=== PATIENT | female | born 1995 | race Caucasian/White ===

== ENCOUNTER → 2023-10-22 17:56 | Outpatient (BNVA) | payer SELFPAY | PROVIDERS: Visit Provider Nurse Practitioner | DX: R50.9 Fever, unspecified (principal); N64.52 Nipple discharge; N64.59 Other signs and symptoms in breast | CPT/HCPCS: 84146; 85025 ==

== ENCOUNTER → 2023-10-25 14:34 | Outpatient (BNVA) | payer SELFPAY | PROVIDERS: PCP Nurse Practitioner Family; Visit Provider Nurse Practitioner Family | DX: R63.4 Abnormal weight loss (principal); K90.0 Celiac disease | CPT/HCPCS: 84443; 84480 ==

== ENCOUNTER → 2023-11-05 14:27 | Outpatient (BNVA) | payer SELFPAY | PROVIDERS: PCP Nurse Practitioner Family; Visit Provider Nurse Practitioner | DX: N64.52 Nipple discharge (principal) | CPT/HCPCS: 87070 ==

== ENCOUNTER 2023-11-21 17:15 | Emergency (ER) | payer SELFPAY ==
[2023-11-21 17:26] VITALS: BP 107/66; PULSE 76; RESP 16; TEMP 37.1; O2SAT 99; BMI 18.3
--- NOTE | 2023-11-21 17:38 | USR_ITS ---
PROCEDURE INFORMATION: Exam: US Right Breast Limited; Cellulitis or Abscess Evaluation Exam date and time: 11/21/2023 5:52 PM Age: 28 years old Clinical indication: Other: Redness; Additional info: Discharge TECHNIQUE: Imaging protocol: Right breast ultrasound. Exam limited to the quadrant(s) of clinical concern. Exam focused on the evaluation of cellulitis or abscess. Exam is an emergent request and a non-BIRADS study. COMPARISON: No relevant prior studies available. FINDINGS: Breast/Soft tissues: No fluid collection to suggest abscess. US/US breast RT limited* [id number] IMPRESSION: No evidence of abscess.
--- NOTE | 2023-11-21 17:41 | ED_ITS ---
HPI - Skin/Abscess/Foreign Bdy 2 General: Chief complaint: Skin/Abscess/Foreign Body Stated complaint: Dr serge Franco Time Seen by Provider: 11/21/23 17:17 Source: patient Mode of arrival: ambulatory Limitations: no limitations History of Present Illness: 28-year-old female is here with right br east discharge. She states she has been treated for staph infection she been on clinda and Bactrim starting roughly 3 weeks ago states originally her discharge is purulent states it is cleared up currently but was sent here today. She said she had fever she is afebrile here denies any worsening improving factors Associated symptoms: Deny chills, fever(s), nausea or vomiting Related Data Previous Rx's Medication Instructions Recorded clindamycin HCl 150 mg capsule 450 mg (3 x 150 mg) PO TID 10 days 11/05/23 #90 caps sulfamethoxazole 800 1 tab PO BID 10 days #20 tabs 11/11/23 mg-trimethoprim 160 mg tablet (Bactrim DS) Allergies Allergy/AdvReac Type Severity Reaction Status Date / Time gluten Allergy Severe ADR-Diarrhe Verified 11/05/23 13:54 a caramel Allergy Intermediate ALGY-Hives Verified 11/05/23 13:54 red dye Allergy Intermediate ALGY-Hives Verified 11/05/23 13:54 celiac Allergy Severe ADR-Diarrhe Uncoded 11/05/23 13:54 a Review of Systems 2 Const: Denies: fever(s), chills, body aches or change in appetite ENMT: Denies: throat pain or dental pain Card: Denies: chest pain Resp: Denies: dyspnea GI: Denies: abdominal pain, nausea, vomiting or diarrhea Musc: Denies: neck pain or back pain Skin/Breast: Denies: rash Neuro: Denies: headache(s) PFSH ED 2 PFSH: Medical History Breast discharge Social History Smoking and tobacco/nicotine status: unknown if used tobacco/nicotine Physical Exam 2 Const: COMMON NORMALS: no acute distress, patient oriented x3 and healthy appearing HENMT: COMMON NORMALS: normocephalic and atraumatic HEAD & SCALP: n ormocephalic and atraumatic Neck/C-Spine: COMMON NORMALS: full ROM and supple Chest: COMMONS NORMALS: normal inspection of the chest OTHER: Right breast has no redness or erythema patient was unable to produce any discharge from her nipple no signs of abscess no lumps palpated Resp: COMMON NORMALS: normal respiratory effort Cardio: COMMON NORMALS: regular rate RATE: regular rate Extremity: COMMON NORMALS: normal to inspection and full ROM Neuro: COMMON NORMALS: patient oriented x3, moves all extremities and no focal motor deficits Psych: COMMON NORMALS: mental status grossly normal, Normal thought process present and cooperative THOUGHT PROCESS: Normal thought process present Skin: COMMON NORMALS: no rashes or lesions noted and no wounds GENERAL SKIN EXAM: no rashes or lesions noted Course 2 Vital Signs: Vital signs: Vital Signs Temperature 98.8 F 11/21/23 17:26 Pulse Rate 76 11/21/23 17:26 Respiratory Rate 16 11/21/23 17:26 Blood Pressure 107/66 11/21/23 17:26 Pulse Oximetry 99 11/21/23 17:26 Oxygen Delivery Me thod Room Air 11/21/23 17:26 MDM - Skin/Abscess/Foreign Bdy Medicial Decision Making Patient presents here with concern of nipple discharge denies any purulent drainage here breast exam is benign no signs of cellulitis ultrasound showed no abscess white count ESR normal she is stable for discharge she is to follow-up with [facility] return if worsening Medical Records I reviewed the patient's medical records. Lab Data I reviewed the patient's lab results. 11/21/23 17:50 Laboratory Results WBC 4.88 10^3/uL (3.29-11.43) 11/21/23 17:50 RBC 4.34 10^6/uL (3.85-5.65) 11/21/23 17:50 Hgb 13.20 g/dL (11.27-16.99) 11/21/23 17:50 Hct 39.8 % (36-47) 11/21/23 17:50 MCV 91.7 fl (85-98) 11/21/23 17:50 MCH 30.4 pg (27-33) 11/21/23 17:50 MCHC 33.2 g/dL (30-55) 11/21/23 17:50 RDW 12.1 % (12.1-15.1) 11/21/23 17:50 Plt Count 168 10^3/cmm (157-399) 11/21/23 17:50 MPV 10.2 fL (7.4-10.4) 11/21/23 17:50 Neut % (Auto) 66.9 % 11/21/23 17:50 Lymph % (Auto) 22.5 % 11/21/23 17:50 [place] % (Auto) 10.2 % 11/21/23 17:50 Eos % (Auto) 0.2 % 11/21/23 17:50 Baso % (Auto) 0.0 % 11/21/23 17:50 Neut # (Auto) 3.26 10^3/uL (1.8-7.7) 11/21/23 17:50 Lymph # (Auto) 1.1 10^3/uL (0.8-4.8) 11/21/23 17:50 [place] # (Auto) 0.5 10^3/uL (0.2-0.9) 11/21/23 17:50 Eos # (Auto) 0.0 10^3/uL (0.0-0.8) 11/21/23 17:50 Baso # (Auto) 0.0 10^3/uL (0.0-0.1) 11/21/23 17:50 Nucleated RBC % (auto) 0 % 11/21/23 17:50 Nucleated RBCs # 0.0 /100WBC 11/21/23 17:50 ESR 2 mm/hr (0-15) 11/21/23 17:50 All radiology interpretation(s) finalized by discharge Discharge Plan Discharge Patient Disposition: Home Clinical Impression: Nipple discharge in female Condition: Stable Prescriptions: No Action clindamycin HCl 150 mg capsule 450 mg PO TID 10 Days Qty: 90 0RF sulfamethoxazole-trimethoprim [Bactrim DS] 800-160 mg tablet 1 tab PO BID 10 Days Qty: 20 0RF Discharge Orders: Discharge ED (Routine); Ordered 11/21/23 Ordered By: Aston Stewart Referrals: Angel Grewal MD [Physician] - 4-7 days Discharge Diet: Advance as tolerated Discharge Activity: Resume usual activity Patient Instructions: Nipple Discharge (ED) Coding Level of Care Code ED Acid Mixer for g Fwariel
[2023-11-21 18:00] LABS: Eosinophils % 0.2 %; Hematocrit 39.8 % (36-47); Lymphocytes # 1.1 10^3/uL (0.8-4.8); Lymphocytes % 22.5 %; Mean Corpuscular HGB Conc 33.2 g/dL (30-55); Mean Corpuscular Hemoglobin 30.4 pg (27-33); Mean Corpuscular Volume 91.7 fl (85-98); Mean Platelet Volume 10.2 fL (7.4-10.4); Monocytes # 0.5 10^3/uL (0.2-0.9); Monocytes % 10.2 %; Neutrophils # 3.26 10^3/uL (1.8-7.7); Neutrophils % 66.9 %; Nucleated Red Blood Cells % 0 %; Platelet Count 168 10^3/cmm (157-399); Red Blood Count 4.34 10^6/uL (3.85-5.65); Red Cell Distribution Width 12.1 % (12.1-15.1); White Blood Count 4.88 10^3/uL (3.29-11.43)
[2023-11-21 18:11] LABS: Erythrocyte Sedimentation Rate 2 mm/hr (0-15)
[2023-11-21] MEDS: HYDROcodone-acetaminophen 5-325 mg Tablet 1 TAB PO (18:38)
[2023-11-21 18:40] VITALS: BP 101/63; PULSE 77; O2SAT 95
--- NOTE | 2023-11-23 09:59 | PC.SOCIAL ---
OBGYN referral Referral msg sent to [facility] at this time.
== END 2023-11-21 18:40 | disposition home or self-care (01) ==
PROVIDERS: Emergency Provider Emergency Medicine
DX: N64.52 Nipple discharge (principal)
CPT/HCPCS: 36415; 76642; 85025; 85651; 99284

== ENCOUNTER 2023-12-02 20:21 | Emergency (ER) | payer SELFPAY ==
[2023-12-02 20:32] VITALS: BP 95/60; PULSE 98; RESP 18; TEMP 37.4; O2SAT 99; BMI 17.9
--- NOTE | 2023-12-02 23:16 | XRR_ITS ---
PROCEDURE INFORMATION: Exam: XR Chest Exam date and time: 12/02/2023 11:19 PM Age: 28 years old Clinical indication: Patient HX: Fever with general weakness TECHNIQUE: Imaging protocol: Radiologic exam of the chest. Views: 1 view. COMPARISON: No relevant prior studies available. FINDINGS: Lungs: No consolidation. Pleural spaces: No pleural effusion. No pneumothorax. Heart/Mediastinum: No cardiomegaly. Bones/joints: No acute findings. XR/XR chest 1V portable [id number] IMPRESSION: No acute chest findings.
--- NOTE | 2023-12-02 23:33 | ECG_ITS ---
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 Measurements Intervals [place] Rate: 83 P: 44 MA: 172 QRS: 99 QRSD: 84 T: 42 QT: 346 QTc: 408 Interpretive Statements SINUS RHYTHM BORDERLINE RIGHT AXIS DEVIATION [QRS AXIS > 90] POSSIBLE RIGHT VENTRICULAR CONDUCTION DELAY [RSR (QR) IN V1/V2] No previous ECG available for comparison Electronically Signed On 12-04-2023 01:26:18 CDT by Matt Hale M.D. [email or web address] medical [email or web address] medical [id number]
--- NOTE | 2023-12-02 23:37 | ED_ITS ---
HPI - Weakness 2 General: Chief complaint: Weakness Stated complaint: Weakness,Fever Time Seen by Provider: 12/02/23 23:07 History of Present Illness: 28-year-old female comes in today with a breast abscess. Patient has been being treated for a breast abscess for over 1 month. Patient has been on 3 rounds of antibiotics and has recently been restarted back on Bactrim at the emergency room at [facility] in [place]. Patient came in tonight due to increased pain and discomfort and drainage from the nipple. Patient also had ultrasound that was unremarkable that was done by Dr. Franco. Review of Systems 2 General: Reports: 10 or more systems reviewed and unremarkable except in HPI and below PFSH ED 2 PFSH: Medical History Breast discharge Social History Smoking and tobacco/nicotine status: unknown if used tobacco/nicotine Female Reproductive History: Date of last menstrual period: 12/02/23 Physical Exam 2 Const: COMMON NORMALS: alert HENMT: COMMON NORMALS: normocephalic HEAD & SCALP: normocephalic Neck/C-Spine: COMMON NORMALS: full ROM Resp: COMMON NORMALS: normal respiratory effort Cardio: COMMON NORMALS: regular rate RATE: regular rate GI: COMMON NORMALS: Soft to palpation PALPATION: Yes Soft to palpation Back/Pelvis: COMMON NORMALS: thoracic and lumbar spine normal to inspection Extremity: COMMON NORMALS: full ROM Neuro: SENSORIUM/ORIENTATION: Yes alert Skin: COMMON NORMALS: turgor normal GENERAL SKIN EXAM: turgor normal Course 2 Vital Signs: Vital signs: Vital Signs Temperature 99.4 F 12/02/23 20:32 Pulse Rate 85 12/03/23 00:38 Respiratory Rate 14 12/03/23 00:38 Blood Pressure 94/48 12/03/23 00:38 Pulse Oximetry 98 12/03/23 00:38 Oxygen Delivery Me thod Room Air 12/02/23 20:32 MDM - Weakness Medical Decision Making 28-year-old female comes in today for abscess to the right breast. Patient has had this infection persistently for about 6 weeks. Patient is been on 3 different rounds of antibiotics with minimal relief. Ultrasound of abdomen Dr. Franco that was unremarkable. Evaluation of the breast noted no redness or induration or sores or lesions. Review of the record from [facility] discharge instructions noted patient was diagnosed with cellulitis and recommended to follow-up with Dr. Oliver, breast surgeon at [facility]. CBC and CMP were unremarkable. Lactic was normal. Differential diagnosis includes mastitis, mastodynia, cellulitis. No signs of infection was noted. I believe is just mastodynia recommended follow-up with breast surgeon at [facility]. Patient was given some tramadol to help with her pain. Patient was agreeable to plan and recommendations. Lab Data 12/02/23 23:20 12/02/23 23:20 Radiology Impressions Chest X-Ray 12/02/23 23:16 IMPRESSION: No acute chest findings. Laboratory Results WBC 9.69 10^3/uL (3.29-11.43) 12/02/23 23:20 RBC 4.16 10^6/uL (3.85-5.65) 12/02/23 23:20 Hgb 12.90 g/dL (11.27-16.99) 12/02/23 23:20 Hct 38.1 % (36-47) 12/02/23 23:20 MCV 91.6 fl (85-98) 12/02/23 23:20 MCH 31.0 pg (27-33) 12/02/23 23:20 MCHC 33.9 g/dL (30-55) 12/02/23 23:20 RDW 12.2 % (12.1-15.1) 12/02/23 23:20 Plt Count 194 10^3/cmm (157-399) 12/02/23 23:20 MPV 10.7 fL (7.4-10.4) H 12/02/23 23:20 Neut % (Auto) 86.8 % 12/02/23 23:20 Lymph % (Auto) 9.0 % 12/02/23 23:20 [place] % (Auto) 3.6 % 12/02/23 23:20 Eos % (Auto) 0.2 % 12/02/23 23:20 Baso % (Auto) 0.1 % 12/02/23 23:20 Neut # (Auto) 8.41 10^3/uL (1.8-7.7) H 12/02/23 23:20 Lymph # (Auto) 0.9 10^3/uL (0.8-4.8) 12/02/23 23:20 [place] # (Auto) 0.4 10^3/uL (0.2-0.9) 12/02/23 23:20 Eos # (Auto) 0.0 10^3/uL (0.0-0.8) 12/02/23 23:20 Baso # (Auto) 0.0 10^3/uL (0.0-0.1) 12/02/23 23:20 Nucleated RBC % (auto) 0 % 12/02/23 23:20 Nucleated RBCs # 0.0 /100WBC 12/02/23 23:20 Sodium 133 mmol/L (136-145) L 12/02/23 23:20 Potassium 3.8 mmol/L (3.5-5.1) 12/02/23 23:20 Chloride 100 mmol/L (98-107) 12/02/23 23:20 Carbon Dioxide 22 mmol/L (22-29) 12/02/23 23:20 Anion Gap 14.8 (5-19) 12/02/23 23:20 BUN 7 mg/dL (6-20) 12/02/23 23:20 Creatinine 0.8 mg/dL (0.5-0.9) 12/02/23 23:20 GFR Calculation 84.2 mL/min (90-130) L 12/02/23 23:20 Glucose 96 mg/dL (65-115) 12/02/23 23:20 Calculated Osmolality 274 mOsm/kg (285-295) L 12/02/23 23:20 Lactic Acid 1.6 mmol/L (0.5-2.2) 12/02/23 23:20 Calcium 8.3 mg/dL (8.5-10.5) L 12/02/23 23:20 Total Bilirubin 0.6 mg/dL (0.15-1.2) 12/02/23 23:20 AST 17 U/L (0-32) 12/02/23 23:20 ALT 10 U/L (0-33) 12/02/23 23:20 Alkaline Phosphatase 54 U/L (35-105) 12/02/23 23:20 Total Protein 7.2 g/dL (6.6-8.7) 12/02/23 23:20 Albumin 4.5 g/dL (3.5-5.2) 12/02/23 23:20 Globulin 2.7 g/dL (1.3-4.6) 12/02/23 23:20 XR interpretation done by ED provider, pending radiology final review EKG Data EKG 1: I personally reviewed and interpreted this EKG as follows: EKG interpretation date: 12/03/23 EKG interpretation time: 00:20 Interpretation: EKG shows sinus rhythm with a regular rate [address] elevation or ectopy is noted. No prior exam was available for comparison. Computer generated interpretation: Sinus rhythm. Borderline right axis deviation. Possible right ventricular conduction delay. No previous EKG for comparison. Discharge Plan Discharge Patient Disposition: Home Clinical Impression: Mastodynia of right breast Condition: Stable Prescriptions: New tramadol 50 mg tablet 50 mg PO Q8H PRN (Reason: pain) Qty: 10 0RF No Action clindamycin HCl 150 mg capsule 450 mg PO TID 10 Days Qty: 90 0RF sulfamethoxazole-trimethoprim [Bactrim DS] 800-160 mg tablet 1 tab PO BID 10 Days Qty: 20 0RF Discharge Orders: Discharge ED (Routine); Ordered 12/03/23 Ordered By: Gentry Reeves Discharge Diet: Usual diet Discharge Activity: Increase activity as tolerated Patient Instructions: Breast Pain Activity Restrictions/Additional Instructions: Continue with antibiotics as prescribed. Take tramadol 50 mg every 8 hours as needed for pain. Follow-up with breast surgeon as recommended by [facility] in [place]. Return to ER for new concerns. Coding Level of Care Code ED Card Checker for Chg Fwd Related Data Previous Rx's Medication Instructions Recorded clindamycin HCl 150 mg capsule 450 mg (3 x 150 mg) PO TID 10 days 11/05/23 #90 caps sulfamethoxazole 800 1 tab PO BID 10 days #20 tabs 11/11/23 mg-trimethoprim 160 mg tablet (Bactrim DS) tramadol 50 mg tablet 50 mg PO Q8H PRN pain #10 tabs 12/03/23 Allergies Allergy/AdvReac Type Severity Reaction Status Date / Time gluten Allergy Severe ADR-Diarrhe Verified 12/02/23 20:35 a caramel Allergy Intermediate ALGY-Hives Verified 12/02/23 20:35 red dye Allergy Intermediate ALGY-Hives Verified 12/02/23 20:35 celiac Allergy Severe ADR-Diarrhe Uncoded 12/02/23 20:35 a
[2023-12-02 23:41] LABS: Basophils % 0.1 %; Eosinophils % 0.2 %; Hematocrit 38.1 % (36-47); Lymphocytes # 0.9 10^3/uL (0.8-4.8); Mean Corpuscular HGB Conc 33.9 g/dL (30-55); Mean Corpuscular Volume 91.6 fl (85-98); Mean Platelet Volume 10.7 fL (7.4-10.4); Monocytes # 0.4 10^3/uL (0.2-0.9); Monocytes % 3.6 %; Neutrophils # 8.41 10^3/uL (1.8-7.7); Neutrophils % 86.8 %; Nucleated Red Blood Cells % 0 %; Platelet Count 194 10^3/cmm (157-399); Red Blood Count 4.16 10^6/uL (3.85-5.65); Red Cell Distribution Width 12.2 % (12.1-15.1); White Blood Count 9.69 10^3/uL (3.29-11.43)
[2023-12-02 23:43] LABS: Alanine Aminotransferase 10 U/L (0-33); Albumin Level 4.5 g/dL (3.5-5.2); Alkaline Phosphatase 54 U/L (35-105); Anion Gap 14.8 (5-19); Aspartate Amino Transferase 17 U/L (0-32); Blood Urea Nitrogen 7 mg/dL (6-20); Calcium 8.3 mg/dL (8.5-10.5); Carbon Dioxide 22 mmol/L (22-29); Chloride 100 mmol/L (98-107); Creatinine Clr Calc Pharmacy 77.6582; Globulin 2.7 g/dL (1.3-4.6); Glomerular Filtration Rate 84.2 mL/min (90-130); Glucose 96 mg/dL (65-115); Lactic Sepsis W/Reflex 1.6 mmol/L (0.5-2.2); Osmolality Calculated 274 mOsm/kg (285-295); Potassium 3.8 mmol/L (3.5-5.1); Sodium 133 mmol/L (136-145); Total Bilirubin 0.6 mg/dL (0.15-1.2); Total Protein 7.2 g/dL (6.6-8.7)
[2023-12-03 00:26] VITALS: RESP 14
[2023-12-03] MEDS: fentaNYL 50 mcg/mL INJ 2mL 25 MCG IVP (00:26)
[2023-12-03] MEDS: vancomycin 1,000 MG in sodium chloride 0.9% 250 ML 250 MG IV (00:30)
[2023-12-03 00:38] VITALS: BP 94/48; PULSE 85; RESP 14; O2SAT 98
[2023-12-03] MEDS: diphenhydrAMINE 50 mg/mL SDV 1mL 25 MG IVP (01:09)
[2023-12-03] MEDS: TRAMadol 50 mg Tablet PO (02:24)
[2023-12-03 02:30] VITALS: BP 90/50; PULSE 90; O2SAT 98
== END 2023-12-03 02:36 | disposition home or self-care (01) ==
PROVIDERS: Emergency Provider Nurse Practitioner Family
DX: N64.4 Mastodynia (principal)
CPT/HCPCS: 71045; 80053; 83605; 85025; 87040; 93005; 96365; 96366; 96375; 99285; J1200; J3010; J3370; J7030; J7050